=== PATIENT | male | born 1965 | race Caucasian/White ===

== ENCOUNTER 2021-04-15 10:58 | Emergency (ER) | payer SELFPAY ==
[~2021-04-15] VITALS: Ht 165.1 cm; Wt 90.7 kg
[2021-04-15 11:06] VITALS: BP_SYST 162; BP_SYST 188; BP_DIAS 120; BP_DIAS 85
--- NOTE | 2021-04-15 11:19 | NUR ---
PT AMBULATED TO BED 03
--- NOTE | 2021-04-15 11:39 | NUR ---
Dr. Mora is evaluating the patient at bedside.
[2021-04-15] MEDS ORDERED: KETOROLAC 60 MG/2 ML VIAL IM ONE (11:45)
--- NOTE | 2021-04-15 11:45 | NUR ---
55 y/o M BIB self from home with c/c pain s/p falling on 04/11/21. Patient A&Ox4, ambulatory, reports he was at a [employer] and fell due to water on the ground. Patient reports pain to left hip pain and R low back pain. Patient noted with bruising to left rear hip. Patient states Ibuprofen with minor relief. Denies LOC, N/V/D, head/neck pain. Pupils 3mm PERRLA. No other trauma or injury noted to extremities. Bed locked in lowest position, side rails x 1, call light in reach. PMH: Hyperthyroidism Meds: "Thyroid medication"; unable to recall NKA Sx: R knee sx 2016
--- NOTE | 2021-04-15 12:06 | NUR ---
Patient to RAD via wheelchair.
[2021-04-15] MEDS ORDERED: IBUP-2213 PO (12:30)
[2021-04-15] MEDS ORDERED: ACET-8386 PO (12:30)
--- NOTE | 2021-04-15 12:40 | NUR ---
PT requested RAD image on CD. Orders placed. Patient acknowledged to wait in lobby upon discharge for CD.
[2021-04-15 12:44] VITALS: BP 162/85
--- NOTE | 2021-04-15 12:44 | NUR ---
Patient discharged with v/s stable. Written and verbal after care instructions given and explained. Patient alert, oriented and verbalized understanding of instructions. Ambulatory with steady gait. All questions addressed prior to discharge. ID band removed. Patient advised to follow up with PMD. Rx of Ibuprofen, Hydrocodone/Acetaminophen given. Patient educated on indication of medication including possible reaction and side effects. Opportunity to ask questions provided and answered.
== END 2021-04-15 12:44 | disposition home or self-care (01) ==
LOC: MED 10:58
DX: M54.5 Low back pain (principal); E07.9 Disorder of thyroid, unspecified; Z98.890 Other specified postprocedural states
CPT/HCPCS: 72100; 96372; 99283; J1885